=== PATIENT | female | born 1970 | race Caucasian/White ===

== ENCOUNTER 2022-04-21 08:16 | Day surgery (SDC) | payer OTHER ==
[~2022-04-21] VITALS: Ht 154.9 cm; Wt 63.5 kg
[2022-04-21] MEDS ORDERED: diphenhydrAMINE 50 MG/ML VIAL ONE (09:01)
[2022-04-21] MEDS ORDERED: LIDOCAINE 2% 100 MG/5 ML UJET TP ONE (09:02)
[2022-04-21] MEDS ORDERED: MIDAZOLAM 2 MG/2 ML VIAL ONE ×2 (09:02)
[2022-04-21] MEDS ORDERED: fentaNYL citrate 0.05 MG/ML VIAL ONE (09:02)
[2022-04-21] MEDS ORDERED: MIDAZOLAM 2 MG/2 ML VIAL IVP ONE (09:50)
[2022-04-21] MEDS ORDERED: fentaNYL citrate 0.05 MG/ML VIAL IVP ONE (09:50)
== END 2022-04-21 11:25 | disposition home or self-care (01) ==
LOC: MDS 08:16 → MMU 08:17 → MDS 11:25
PROVIDERS: ATTEND Internal Medicine Gastroenterology
DX: Z12.11 Encounter for screening for malignant neoplasm of colon (principal); K21.9 Gastro-esophageal reflux disease without esophagitis; I10 Essential (primary) hypertension; Z88.8 Allergy status to other drugs, medicaments and biological substances; Z79.899 Other long term (current) drug therapy; Z20.822 Contact with and (suspected) exposure to COVID-19
CPT/HCPCS: 45378; 87426; J2250; J3010; J1200

== ENCOUNTER 2023-08-05 08:20 | Day surgery (SDC) | payer OTHER ==
[2023-08-05] MEDS ORDERED: fentaNYL citrate 0.05 MG/ML VIAL ONE (09:11)
[2023-08-05] MEDS: fentaNYL citrate 0.05 MG/ML VIAL IVP ONE (09:30)
[2023-08-05] MEDS: LIDOCAINE 2% 100 MG/5 ML UJET TP ONE (09:37)
== END 2023-08-05 11:05 | disposition home or self-care (01) ==
LOC: MDS 08:20 → MMU 08:22 → MDS 11:05
PROVIDERS: ATTEND Internal Medicine Gastroenterology
DX: Z09 Encounter for follow-up examination after completed treatment for conditions other than malignant neoplasm (principal); K57.30 Diverticulosis of large intestine without perforation or abscess without bleeding; I10 Essential (primary) hypertension; E78.5 Hyperlipidemia, unspecified; Z88.8 Allergy status to other drugs, medicaments and biological substances; Z98.890 Other specified postprocedural states
CPT/HCPCS: 45378; J3010